=== PATIENT | male | born 1965 | race Caucasian/White ===

== ENCOUNTER → 2018-08-31 | Outpatient (CLI) | payer BC ==
[~2018-08-31] MED LIST: IBUPROFEN200 MG PO; LISI20 PO
== END | disposition home or self-care (01) ==
LOC: LAB 15:00 → LAB SHORT 15:00
DX: L03.113 Cellulitis of right upper limb (principal)
CPT/HCPCS: 87070; 87077; 87147; 87186; 87205

== ENCOUNTER → 2018-09-27 | Outpatient (CLI) | payer BC | END | disposition home or self-care (01) | LOC: LAB 14:24 → LAB SHORT 14:24 | DX: L02.219 Cutaneous abscess of trunk, unspecified (principal) | CPT/HCPCS: 87070; 87077; 87147; 87186; 87205 ==

== ENCOUNTER → 2023-02-22 | Outpatient (CLI) | payer BC ==
[2023-02-22 16:10] LABS: Albumin, Blood 4.1 g/dL (3.4-5.0); Albumin/Globulin Ratio 1.1 (0.8-1.8); Bilirubin, Total 0.2 mg/dL (0.1-1.0); Bun/Creatinine Ratio 22.9 (12.0-20.0); Calcium, Blood 9.1 mg/dL (8.5-10.1); Creatinine, Blood 0.83 mg/dL (0.60-1.20); Globulin, Blood 3.8 g/dL (2.2-4.0); Potassium, Blood 3.9 mmol/L (3.5-5.5); Total Protein, Blood 7.9 g/dL (6.4-8.2)
[2023-02-23 23:09] LABS: HEMOGLOBIN A1C 5.7 % (4.8-5.6)
== END | disposition home or self-care (01) ==
LOC: LAB SHORT 10:35 → LAB 10:35 → LAB FUT 11-06 16:40 → EDSTATUS 11-06 16:40
PROVIDERS: Family Medicine
DX: E11.9 Type 2 diabetes mellitus without complications (principal)
CPT/HCPCS: 80053; 83036

== ENCOUNTER 2024-11-01 19:04 | Emergency (ER) | payer BC ==
[~2024-11-01] VITALS: Ht 182.9 cm; Wt 124.7 kg
[2024-11-01 20:22] LABS: BASOPHILS ABSOLUTE AUTO 0.12 K/mm3 (0.00-0.23); BASOPHILS PERCENT AUTO 1 % (0-2); EOSINOPHILS ABSOLUTE AUTO 0.16 K/mm3 (0.00-0.68); EOSINOPHILS PERCENT AUTO 1 % (0-6); Hemoglobin 18.1 g/dL (13.5-17.5); IMMATURE GRAN PERCENT AUTO 1 % (0-1); LYMPHOCYTES ABSOLUTE AUTO 1.14 K/mm3 (0.84-5.20); LYMPHOCYTES PERCENT AUTO 5 % (21-46); MONOCYTES ABSOLUTE AUTO 1.98 K/mm3 (0.16-1.47); MONOCYTES PERCENT AUTO 9 % (4-13); Mean Corpuscular HGB 30.4 pg (26.0-34.0); Mean Corpuscular HGB Conc 35.5 g/dL (31.5-36.5); Mean Corpuscular Volume 86 fL (80-100); Mean Platelet Volume 9.3 fL (9.1-12.4); NEUTROPHILS ABSOLUTE AUTO 17.66 K/mm3 (1.96-9.15); NEUTROPHILS PERCENT AUTO 83 % (41-73); Platelet Count 277 K/mm3 (150-400); RDW Coefficient Variation 13.5 % (11.7-14.2); RDW Standard Deviation 41.8 fL (35.1-46.3); Red Blood Cell Count 5.95 M/mm3 (4.30-5.90); White Blood Cell Count 21.16 K/mm3 (4.00-11.30)
[2024-11-01 20:41] LABS: Albumin, Blood 4.3 g/dL (3.4-5.0); Albumin/Globulin Ratio 1.1 (0.8-1.8); Bilirubin, Total 0.8 mg/dL (0.1-1.0); Bun/Creatinine Ratio 15.2 (12.0-20.0); Calcium, Blood 9.6 mg/dL (8.5-10.1); Creatinine, Blood 0.92 mg/dL (0.60-1.20); Globulin, Blood 3.8 g/dL (2.2-4.0); Potassium, Blood 4.2 mmol/L (3.5-5.5); Total Protein, Blood 8.1 g/dL (6.4-8.2)
[2024-11-01] MEDS ORDERED: Lactated Ringer's 1,000 ML IV ONE (21:10)
[2024-11-01] MEDS ORDERED: Morphine Sulfate 4 MG/1 ML Injection IV ONE (21:10)
[2024-11-01 21:20] LABS: Influenza A, PCR NEGATIVE (NEGATIVE); Influenza B, PCR NEGATIVE (NEGATIVE); Resp Syncytial Virus, PCR NEGATIVE (NEGATIVE); SARS-Cov-2 (COVID-19) PCR, MMC NEGATIVE (NEGATIVE)
[2024-11-01] MEDS ORDERED: Ketorolac Tromethamine 15mg Vial IV ONE (23:20)
[2024-11-01] MEDS ORDERED: CefTRIAXone Sodium 2,000 MG in NS 100 ML IV ONE (23:25)
[2024-11-01] MEDS ORDERED: MetroNIDAZOLE 500MG/NS 100 ml 100 ML IV ONE (23:25)
[2024-11-01] MEDS ORDERED: Vancomycin HCL 2,500 MG in NS 500 ML IV ONE (23:35)
[2024-11-01 23:56] LABS: Source, Urine Clean Catch
[2024-11-01 23:59] LABS: Bilirubin, Urine Neg (Neg); Blood, Urine Neg (Neg); Glucose Qualitative, Urine Neg (Neg); Ketones, Urine Neg (Neg); Leukocyte Esterase, Urine Neg (Neg); Nitrite, Urine Neg (Neg); Protein, Urine 2+ (Neg); Specific Gravity, Urine 1.005 (1.003-1.022); Urobilinogen, Urine NORM (Normal)
[2024-11-02 00:55] LABS: Appearance, Urine Clear (Clear); Color, Urine Yellow (P-Yellow)
[2024-11-02 00:56] LABS: Bacteria Few /hpf; Red Blood Cells, Urine 0-2 /hpf (0-2); Squamous Epithelial Cells Few /hpf (Few); White Blood Cells, Urine 0-2 /hpf (0-5)
[2024-11-02] MEDS ORDERED: HYDROmorphone HCl/Pf 1MG SYR IV ONE ×2 (01:35→03:20)
[2024-11-02] MEDS ORDERED: Ondansetron HCl 2 MG / ML 2ML Vial IV PRN (01:55)
[2024-11-02] MEDS ORDERED: Acetaminophen 325 MG TABLET PO PRN (01:55)
[2024-11-02] MEDS ORDERED: HYDROmorphone HCl/Pf 1MG SYR IV PRN (01:55)
[2024-11-02] MEDS ORDERED: MetroNIDAZOLE 500MG/NS 100 ml 100 ML IV SCH (06:00)
[2024-11-02 08:22] VITALS: BP 130/69
[2024-11-02] MEDS ORDERED: TRAM50 PO (08:30)
[2024-11-02] MEDS ORDERED: CYCL10 PO (08:30)
[2024-11-02] MEDS ORDERED: DEPO-TESTO200 MG/18 IM (08:30)
[2024-11-02] MEDS ORDERED: AMLODIPINE BESYL5 MG PO (08:31)
== END 2024-11-02 08:30 | disposition short-term general hospital (02) ==
LOC: ER 19:04
PROVIDERS: Student in an Organized Health Care Education/Training Program
DX: A18.01 Tuberculosis of spine (principal); T85.192D Other mechanical complication of implanted electronic neurostimulator of spinal cord electrode (lead), subsequent encounter; D72.829 Elevated white blood cell count, unspecified; R50.9 Fever, unspecified; I10 Essential (primary) hypertension; Z79.1 Long term (current) use of non-steroidal anti-inflammatories (NSAID); Z79.899 Other long term (current) drug therapy
CPT/HCPCS: 0241U; 36415; 72132; 80053; 81001; 83605; 85025; 87040; 87077; 87186; 93005; 93010; 96361; 96365-59; 96366; 96367; 96375; 96376; 99285-25; J0696; J1171; J1885; J2270; J2405; J3370; J7040; J7120; Q9967

== ENCOUNTER 2024-11-09 04:18 | Day surgery (SDC) | payer BC ==
[~2024-11-09 04:18] MED LIST changes: +AMLODIPINE BESYL5 MG PO; +CYCL10 PO; +DEPO-TESTO200 MG/18 IM; +TRAM50 PO
[2024-11-09] MEDS ORDERED: Silver Nitr/Potassium Nitrate 1 EA APPL ONE (08:27)
== END 2024-11-09 23:00 | disposition home or self-care (01) ==
LOC: WOUND 04:18
DX: T81.42XA Infection following a procedure, deep incisional surgical site, initial encounter (principal); I10 Essential (primary) hypertension; G47.30 Sleep apnea, unspecified
CPT/HCPCS: A9270; G0463

== ENCOUNTER 2024-11-16 00:28 | Day surgery (SDC) | payer BC | END 2024-11-16 23:00 | disposition home or self-care (01) | LOC: WOUND 00:28 | DX: T81.31XD Disruption of external operation (surgical) wound, not elsewhere classified, subsequent encounter (principal); I10 Essential (primary) hypertension; Y83.8 Other surgical procedures as the cause of abnormal reaction of the patient, or of later complication, without mention of misadventure at the time of the procedure ==

== ENCOUNTER → 2024-11-21 | Day surgery (SDC) | payer BC | LOC: WOUND 02:54 | DX: T81.31XD Disruption of external operation (surgical) wound, not elsewhere classified, subsequent encounter (principal); S21.209D Unspecified open wound of unspecified back wall of thorax without penetration into thoracic cavity, subsequent encounter; I10 Essential (primary) hypertension; X58.XXXD Exposure to other specified factors, subsequent encounter; Y83.8 Other surgical procedures as the cause of abnormal reaction of the patient, or of later complication, without mention of misadventure at the time of the procedure ==

== ENCOUNTER 2024-11-28 01:56 | Day surgery (SDC) | payer BC | END 2024-11-28 23:00 | disposition home or self-care (01) | LOC: WOUND 01:56 | DX: T81.42XA Infection following a procedure, deep incisional surgical site, initial encounter (principal); I10 Essential (primary) hypertension ==

== ENCOUNTER → 2024-12-05 | Day surgery (SDC) | payer BC | LOC: WOUND 01:07 | DX: S21.209D Unspecified open wound of unspecified back wall of thorax without penetration into thoracic cavity, subsequent encounter (principal); X58.XXXD Exposure to other specified factors, subsequent encounter; T81.42XD Infection following a procedure, deep incisional surgical site, subsequent encounter; I10 Essential (primary) hypertension ==

== ENCOUNTER 2024-12-12 12:13 | Day surgery (SDC) | payer BC | END 2024-12-12 23:00 | disposition home or self-care (01) | LOC: WOUND 12:13 | DX: T81.42XA Infection following a procedure, deep incisional surgical site, initial encounter (principal); I10 Essential (primary) hypertension ==

== ENCOUNTER 2024-12-19 02:16 | Day surgery (SDC) | payer BC | END 2024-12-19 23:00 | disposition home or self-care (01) | LOC: WOUND 02:16 | DX: S21.209A Unspecified open wound of unspecified back wall of thorax without penetration into thoracic cavity, initial encounter (principal); T81.42XA Infection following a procedure, deep incisional surgical site, initial encounter; I10 Essential (primary) hypertension ==

== ENCOUNTER 2024-12-26 03:04 | Day surgery (SDC) | payer BC | END 2024-12-26 23:00 | disposition home or self-care (01) | LOC: WOUND 03:04 | DX: T81.31XD Disruption of external operation (surgical) wound, not elsewhere classified, subsequent encounter (principal); S21.209D Unspecified open wound of unspecified back wall of thorax without penetration into thoracic cavity, subsequent encounter; I10 Essential (primary) hypertension; Y83.8 Other surgical procedures as the cause of abnormal reaction of the patient, or of later complication, without mention of misadventure at the time of the procedure; X58.XXXD Exposure to other specified factors, subsequent encounter ==

== ENCOUNTER 2025-01-02 05:36 | Day surgery (SDC) | payer BC | END 2025-01-02 23:00 | disposition home or self-care (01) | LOC: WOUND 05:36 | DX: T81.42XA Infection following a procedure, deep incisional surgical site, initial encounter (principal); I10 Essential (primary) hypertension ==

== ENCOUNTER 2025-01-23 03:16 | Day surgery (SDC) | payer BC | END 2025-01-23 23:00 | disposition home or self-care (01) | LOC: WOUND 03:16 | DX: S21.209A Unspecified open wound of unspecified back wall of thorax without penetration into thoracic cavity, initial encounter (principal); T81.42XA Infection following a procedure, deep incisional surgical site, initial encounter; I10 Essential (primary) hypertension ==

== ENCOUNTER 2025-02-13 02:48 | Day surgery (SDC) | payer BC | END 2025-02-13 23:00 | disposition home or self-care (01) | LOC: WOUND 02:48 | DX: S21.209A Unspecified open wound of unspecified back wall of thorax without penetration into thoracic cavity, initial encounter (principal); T81.42XA Infection following a procedure, deep incisional surgical site, initial encounter; X58.XXXA Exposure to other specified factors, initial encounter; I10 Essential (primary) hypertension | CPT/HCPCS: A6213 ==

== ENCOUNTER 2025-02-20 01:45 | Day surgery (SDC) | payer BC | END 2025-02-20 23:00 | disposition home or self-care (01) | LOC: WOUND 01:45 | DX: S31.000A Unspecified open wound of lower back and pelvis without penetration into retroperitoneum, initial encounter (principal); T81.42XA Infection following a procedure, deep incisional surgical site, initial encounter; I10 Essential (primary) hypertension; Y83.8 Other surgical procedures as the cause of abnormal reaction of the patient, or of later complication, without mention of misadventure at the time of the procedure | CPT/HCPCS: A6213 ==

== ENCOUNTER 2025-02-27 03:14 | Day surgery (SDC) | payer BC | END 2025-02-27 23:00 | disposition home or self-care (01) | LOC: WOUND 03:14 | DX: S31.000A Unspecified open wound of lower back and pelvis without penetration into retroperitoneum, initial encounter (principal); T81.42XA Infection following a procedure, deep incisional surgical site, initial encounter; I10 Essential (primary) hypertension; X58.XXXA Exposure to other specified factors, initial encounter | CPT/HCPCS: A6213 ==

== ENCOUNTER 2025-03-06 01:45 | Day surgery (SDC) | payer BC | END 2025-03-06 23:00 | disposition home or self-care (01) | LOC: WOUND 01:45 | DX: S31.000A Unspecified open wound of lower back and pelvis without penetration into retroperitoneum, initial encounter (principal); T81.42XA Infection following a procedure, deep incisional surgical site, initial encounter; I10 Essential (primary) hypertension; Y83.8 Other surgical procedures as the cause of abnormal reaction of the patient, or of later complication, without mention of misadventure at the time of the procedure | CPT/HCPCS: A6213 ==

== ENCOUNTER 2025-03-13 03:26 | Day surgery (SDC) | payer BC | END 2025-03-13 23:00 | disposition home or self-care (01) | LOC: WOUND 03:26 | DX: S31.000A Unspecified open wound of lower back and pelvis without penetration into retroperitoneum, initial encounter (principal); T81.42XA Infection following a procedure, deep incisional surgical site, initial encounter; I10 Essential (primary) hypertension; X58.XXXA Exposure to other specified factors, initial encounter | CPT/HCPCS: A6213 ==

== ENCOUNTER 2025-04-03 06:20 | Day surgery (SDC) | payer BC | END 2025-04-03 23:00 | disposition home or self-care (01) | LOC: WOUND 06:20 | DX: S31.000A Unspecified open wound of lower back and pelvis without penetration into retroperitoneum, initial encounter (principal); T81.42XA Infection following a procedure, deep incisional surgical site, initial encounter; I10 Essential (primary) hypertension; X58.XXXA Exposure to other specified factors, initial encounter | CPT/HCPCS: A6213 ==

== ENCOUNTER 2025-04-10 04:12 | Day surgery (SDC) | payer BC | END 2025-04-10 23:00 | disposition home or self-care (01) | LOC: WOUND 04:12 | DX: S21.209D Unspecified open wound of unspecified back wall of thorax without penetration into thoracic cavity, subsequent encounter (principal); T81.42XD Infection following a procedure, deep incisional surgical site, subsequent encounter; I10 Essential (primary) hypertension | CPT/HCPCS: A6213 ==

== ENCOUNTER 2025-04-17 02:30 | Day surgery (SDC) | payer BC | END 2025-04-17 23:00 | disposition home or self-care (01) | LOC: WOUND 02:30 | DX: S31.000A Unspecified open wound of lower back and pelvis without penetration into retroperitoneum, initial encounter (principal); T81.42XA Infection following a procedure, deep incisional surgical site, initial encounter; I10 Essential (primary) hypertension; X58.XXXA Exposure to other specified factors, initial encounter | CPT/HCPCS: A6213 ==

== ENCOUNTER 2025-04-24 01:49 | Day surgery (SDC) | payer BC | END 2025-04-24 23:00 | disposition home or self-care (01) | LOC: WOUND 01:49 | DX: S21.209D Unspecified open wound of unspecified back wall of thorax without penetration into thoracic cavity, subsequent encounter (principal); T81.42XD Infection following a procedure, deep incisional surgical site, subsequent encounter; I10 Essential (primary) hypertension | CPT/HCPCS: A6213 ==

== ENCOUNTER 2025-05-01 02:13 | Day surgery (SDC) | payer BC | END 2025-05-01 23:00 | disposition home or self-care (01) | LOC: WOUND 02:13 | DX: S31.000A Unspecified open wound of lower back and pelvis without penetration into retroperitoneum, initial encounter (principal); T81.42XA Infection following a procedure, deep incisional surgical site, initial encounter; I10 Essential (primary) hypertension; Y83.8 Other surgical procedures as the cause of abnormal reaction of the patient, or of later complication, without mention of misadventure at the time of the procedure | CPT/HCPCS: A6213 ==

== ENCOUNTER 2025-05-15 02:19 | Day surgery (SDC) | payer BC | END 2025-05-15 23:00 | disposition home or self-care (01) | LOC: WOUND 02:19 | DX: S21.209A Unspecified open wound of unspecified back wall of thorax without penetration into thoracic cavity, initial encounter (principal); T81.42XA Infection following a procedure, deep incisional surgical site, initial encounter; I10 Essential (primary) hypertension | CPT/HCPCS: A6213 ==

== ENCOUNTER 2025-05-29 00:17 | Day surgery (SDC) | payer BC | END 2025-05-29 23:00 | disposition home or self-care (01) | LOC: WOUND 00:17 | DX: S21.209D Unspecified open wound of unspecified back wall of thorax without penetration into thoracic cavity, subsequent encounter (principal); I10 Essential (primary) hypertension; T81.42XD Infection following a procedure, deep incisional surgical site, subsequent encounter | CPT/HCPCS: A6213 ==

== ENCOUNTER 2025-06-05 02:53 | Day surgery (SDC) | payer BC | END 2025-06-05 23:00 | disposition home or self-care (01) | LOC: WOUND 02:53 | DX: T81.31XA Disruption of external operation (surgical) wound, not elsewhere classified, initial encounter (principal); I10 Essential (primary) hypertension | CPT/HCPCS: A6213 ==

== ENCOUNTER 2025-06-26 00:09 | Day surgery (SDC) | payer BC | END 2025-06-26 23:00 | disposition home or self-care (01) | LOC: WOUND 00:09 | DX: T81.31XA Disruption of external operation (surgical) wound, not elsewhere classified, initial encounter (principal); I10 Essential (primary) hypertension | CPT/HCPCS: A6213 ==

== ENCOUNTER 2025-07-10 01:01 | Day surgery (SDC) | payer BC | END 2025-07-10 23:00 | disposition home or self-care (01) | LOC: WOUND 01:01 | DX: S31.000A Unspecified open wound of lower back and pelvis without penetration into retroperitoneum, initial encounter (principal); T81.42XA Infection following a procedure, deep incisional surgical site, initial encounter; I10 Essential (primary) hypertension; X58.XXXA Exposure to other specified factors, initial encounter | CPT/HCPCS: A6213 ==

== ENCOUNTER 2025-07-17 00:13 | Day surgery (SDC) | payer BC | END 2025-07-17 23:35 | disposition home or self-care (01) | LOC: WOUND 00:13 | DX: S21.209D Unspecified open wound of unspecified back wall of thorax without penetration into thoracic cavity, subsequent encounter (principal); T81.42XD Infection following a procedure, deep incisional surgical site, subsequent encounter; I10 Essential (primary) hypertension; G47.30 Sleep apnea, unspecified; M19.90 Unspecified osteoarthritis, unspecified site; X58.XXXD Exposure to other specified factors, subsequent encounter; Z79.899 Other long term (current) drug therapy | CPT/HCPCS: A6213 ==

== ENCOUNTER 2025-07-24 00:13 | Day surgery (SDC) | payer BC | END 2025-07-24 23:00 | disposition home or self-care (01) | LOC: WOUND 00:13 | DX: T81.42XA Infection following a procedure, deep incisional surgical site, initial encounter (principal); I10 Essential (primary) hypertension | CPT/HCPCS: A6213 ==

== ENCOUNTER 2025-07-31 00:57 | Day surgery (SDC) | payer BC | END 2025-07-31 23:59 | disposition home or self-care (01) | LOC: WOUND 00:57 | DX: S31.000A Unspecified open wound of lower back and pelvis without penetration into retroperitoneum, initial encounter (principal); T81.42XA Infection following a procedure, deep incisional surgical site, initial encounter; I10 Essential (primary) hypertension; X58.XXXA Exposure to other specified factors, initial encounter | CPT/HCPCS: A6213; G0463 ==

== ENCOUNTER 2025-08-14 07:38 | Day surgery (SDC) | payer BC | END 2025-08-14 23:00 | disposition home or self-care (01) | LOC: WOUND 07:38 | DX: T81.42XD Infection following a procedure, deep incisional surgical site, subsequent encounter (principal); S21.209D Unspecified open wound of unspecified back wall of thorax without penetration into thoracic cavity, subsequent encounter; T85.73 Infection and inflammatory reaction due to nervous system devices, implants and graft; I10 Essential (primary) hypertension; G47.30 Sleep apnea, unspecified; M19.90 Unspecified osteoarthritis, unspecified site; Y75.2 Prosthetic and other implants, materials and neurological devices associated with adverse incidents; Z79.899 Other long term (current) drug therapy | CPT/HCPCS: A6213 ==